=== PATIENT | female | born 2000 | race African-American/Black ===

== ENCOUNTER 2018-03-18 18:43 | Emergency (ER) | payer SELFPAY ==
[~2018-03-18] VITALS: Ht 167.6 cm; Wt 60.3 kg
[2018-03-18 18:54] VITALS: BP 107/58
[2018-03-18 19:49] LABS: Urine Amorphous Crystal FEW /hpf (None Seen); Urine Bacteria MANY /hpf (None Seen); Urine Blood Negative /uL (Negative); Urine Mucus FEW (None Seen); Urine Specific Gravity 1.017 (1.001-1.035); Urine WBC 2 /hpf (0 - 5)
== END 2018-03-18 20:58 | disposition left against medical advice (07) ==
LOC: ER 18:43
DX: O26.891 Other specified pregnancy related conditions, first trimester (principal); Z53.21 Procedure and treatment not carried out due to patient leaving prior to being seen by health care provider; Z3A.00 Weeks of gestation of pregnancy not specified
CPT/HCPCS: 36415; 81001; 84702

== ENCOUNTER 2018-03-20 04:37 | Emergency (ER) | payer SELFPAY ==
[~2018-03-20] VITALS: Ht 167.6 cm; Wt 60.3 kg
[2018-03-20 04:50] VITALS: BP 131/82
== END 2018-03-20 08:19 | disposition left against medical advice (07) ==
LOC: ER 04:41
DX: Z34.01 Encounter for supervision of normal first pregnancy, first trimester (principal); Z53.29 Procedure and treatment not carried out because of patient's decision for other reasons

== ENCOUNTER 2018-07-28 20:10 | Emergency (ER) | payer MEDICAID ==
[~2018-07-28] VITALS: Ht 167.6 cm; Wt 74.8 kg
[2018-07-28 20:20] VITALS: BP 109/56
[2018-07-28] MEDS ORDERED: IPRATROPIUM BROM 0.5 MG/2.5ML INH SOL HHN ONE (21:00)
[2018-07-28] MEDS ORDERED: ALBUTEROL SULF 2.5 MG/0.5ML(0.5%) NEB SOLN HHN ONE (21:00)
== END 2018-07-28 21:04 | disposition still patient (30) ==
LOC: ER 20:10 → EDBD 20:10 → ER 21:04
DX: O99.513 Diseases of the respiratory system complicating pregnancy, third trimester (principal); R06.02 Shortness of breath; Z53.21 Procedure and treatment not carried out due to patient leaving prior to being seen by health care provider; Z3A.00 Weeks of gestation of pregnancy not specified

== ENCOUNTER 2018-07-28 21:05 | Observation (INO) | payer MEDICAID ==
[~2018-07-28] VITALS: Ht 167.6 cm; Wt 72.6 kg
[2018-07-28] MEDS: TERBUTALINE SULFATE 1 MG/ML 1ML VIAL SC SCH ×2 (22:29→22:54)
== END 2018-07-28 23:45 | disposition home or self-care (01) | DRG 566 ==
LOC: LDRP 21:05
PROVIDERS: ADMIT Specialist; ATTEND Specialist
DX: O62.9 Abnormality of forces of labor, unspecified (principal); Z3A.32 32 weeks gestation of pregnancy
CPT/HCPCS: 59025; 81002; 96372; G0378; J3105

== ENCOUNTER 2018-08-01 13:30 | Observation (INO) | payer MEDICAID ==
[~2018-08-01] VITALS: Ht 167.6 cm; Wt 74.8 kg
[2018-08-01] MEDS ORDERED: BETAMETHASONE ACET (6MG/ML) 5ML VIAL ONE (15:25)
[2018-08-01] MEDS ORDERED: PREN-96 PO (17:26)
[2018-08-01] MEDS ORDERED: BETAMETHASONE ACET (6MG/ML) 5ML VIAL IM ONE (22:00)
[2018-08-02] MEDS ORDERED: NIF10C PO (16:43)
== END 2018-08-01 15:42 | disposition home or self-care (01) | DRG 563 ==
LOC: LDRP 13:30
PROVIDERS: ADMIT Specialist; ATTEND Specialist
DX: O60.03 Preterm labor without delivery, third trimester (principal); Z3A.32 32 weeks gestation of pregnancy
CPT/HCPCS: 59025; 81002; 96372; G0378; J0702

== ENCOUNTER 2018-08-02 14:26 | Observation (INO) | payer MEDICAID ==
[~2018-08-02] VITALS: Ht 167.6 cm; Wt 74.8 kg
[~2018-08-02 14:26] MED LIST: PREN-96 PO
[2018-08-02] MEDS ORDERED: BETAMETHASONE ACET (6MG/ML) 5ML VIAL IM ONE (14:45)
[2018-08-02] MEDS ORDERED: NIFEdipine 10 MG CAP PO ONE (15:00)
[2018-08-02] MEDS ORDERED: NIF10C PO (16:43)
== END 2018-08-02 16:40 | disposition home or self-care (01) | DRG 563 ==
LOC: LDRP 14:26
PROVIDERS: ADMIT Specialist; ATTEND Specialist
DX: O60.03 Preterm labor without delivery, third trimester (principal); Z3A.33 33 weeks gestation of pregnancy
CPT/HCPCS: 59025; 76815; 81002; 96372; G0378; J0702

== ENCOUNTER 2018-08-07 13:50 | Observation (INO) | payer MEDICAID ==
[~2018-08-07 13:50] MED LIST changes: +NIF10C PO
== END 2018-08-07 14:50 | disposition home or self-care (01) | DRG 563 ==
LOC: LDRP 13:50
PROVIDERS: ADMIT Specialist; ATTEND Specialist
DX: O60.03 Preterm labor without delivery, third trimester (principal); Z3A.33 33 weeks gestation of pregnancy
CPT/HCPCS: 59025; 81002; G0378

== ENCOUNTER 2018-08-14 14:55 | Observation (INO) | payer MEDICAID | END 2018-08-14 15:50 | disposition home or self-care (01) | DRG 563 | LOC: LDRP 14:55 | PROVIDERS: ADMIT Specialist; ATTEND Specialist | DX: O60.03 Preterm labor without delivery, third trimester (principal); Z3A.34 34 weeks gestation of pregnancy | CPT/HCPCS: 59025; 81002; G0378 ==

== ENCOUNTER 2018-08-26 08:10 | Observation (INO) | payer MEDICAID ==
[2018-08-26] MEDS ORDERED: LACTATED RINGER'S 1,000 ML IV ONE (08:34)
[2018-08-26] MEDS ORDERED: TERBUTALINE SULFATE 1 MG/ML 1ML VIAL SC ONE (08:45)
== END 2018-08-26 09:10 | disposition home or self-care (01) | DRG 563 ==
LOC: LDRP 08:10
PROVIDERS: ADMIT Specialist; ATTEND Specialist
DX: O60.03 Preterm labor without delivery, third trimester (principal); O26.893 Other specified pregnancy related conditions, third trimester; N89.8 Other specified noninflammatory disorders of vagina; Z3A.36 36 weeks gestation of pregnancy
CPT/HCPCS: 59025; 81002; G0378

== ENCOUNTER 2018-09-04 18:15 | Observation (INO) | payer MEDICAID | END 2018-09-04 20:45 | disposition home or self-care (01) | DRG 566 | LOC: LDRP 18:15 | PROVIDERS: ADMIT Obstetrics & Gynecology; ATTEND Obstetrics & Gynecology | DX: O26.893 Other specified pregnancy related conditions, third trimester (principal); N89.8 Other specified noninflammatory disorders of vagina; Z3A.37 37 weeks gestation of pregnancy | CPT/HCPCS: 59025; 76815; 81002; 87210; G0378 ==

== ENCOUNTER 2018-09-13 16:30 | Observation (INO) | payer MEDICAID | END 2018-09-13 19:35 | disposition home or self-care (01) | DRG 566 | LOC: LDRP 16:30 | PROVIDERS: ADMIT Obstetrics & Gynecology; ATTEND Obstetrics & Gynecology | DX: O42.913 Preterm premature rupture of membranes, unspecified as to length of time between rupture and onset of labor, third trimester (principal); Z3A.39 39 weeks gestation of pregnancy | CPT/HCPCS: 59025; 76805; 81002; G0378 ==

== ENCOUNTER 2018-09-20 03:12 | Observation (INO) | payer MEDICAID ==
[~2018-09-20] VITALS: Ht 167.6 cm; Wt 74.8 kg
[2018-09-20] MEDS ORDERED: LACTATED RINGER'S 1,000 ML IV SCH (03:50)
== END 2018-09-20 05:50 | disposition home or self-care (01) | DRG 566 ==
LOC: LDRP 03:12
PROVIDERS: ADMIT Obstetrics & Gynecology; ATTEND Obstetrics & Gynecology
DX: O46.93 Antepartum hemorrhage, unspecified, third trimester (principal); Z3A.40 40 weeks gestation of pregnancy
CPT/HCPCS: 59025; 76817; 76818; 81002; G0378

== ENCOUNTER 2018-09-20 18:30 | Observation (INO) | payer MEDICAID ==
[~2018-09-20] VITALS: Ht 167.6 cm; Wt 77.1 kg
[2018-09-20] MEDS ORDERED: NALBUPHINE HCL 10 MG/1ml INJECTION IV ONE (19:15)
[2018-09-20] MEDS ORDERED: LACTATED RINGER'S 1,000 ML IV ONE (19:15)
[2018-09-20] MEDS ORDERED: hydrOXYzine HCL 25 MG/ML VL IM ONE ×2 (19:30→19:31)
== END 2018-09-20 20:35 | disposition home or self-care (01) | DRG 566 ==
LOC: LDRP 18:30
PROVIDERS: ADMIT Obstetrics & Gynecology; ATTEND Obstetrics & Gynecology
DX: O48.0 Post-term pregnancy (principal); O21.2 Late vomiting of pregnancy; O62.9 Abnormality of forces of labor, unspecified; O46.93 Antepartum hemorrhage, unspecified, third trimester; Z3A.40 40 weeks gestation of pregnancy
CPT/HCPCS: 59025; 81002; 96372; G0378; J3410

== ENCOUNTER 2018-09-21 06:14 | Observation (INO) | payer MEDICAID ==
[~2018-09-21] VITALS: Ht 167.6 cm; Wt 77.1 kg
[2018-09-21] MEDS ORDERED: LACTATED RINGER'S 1,000 ML IV ONE (07:15)
[2018-09-21] MEDS ORDERED: NALBUPHINE HCL 10 MG/1ml INJECTION IV ONE (07:15)
== END 2018-09-21 09:10 | disposition home or self-care (01) | DRG 566 ==
LOC: LDRP 06:14 → UNDOADMOB 06:14 → UNDODISOB 09:10
PROVIDERS: ADMIT Obstetrics & Gynecology; ATTEND Obstetrics & Gynecology
DX: O62.9 Abnormality of forces of labor, unspecified (principal); O21.2 Late vomiting of pregnancy; O48.0 Post-term pregnancy; Z3A.40 40 weeks gestation of pregnancy
CPT/HCPCS: 59025; 76818; 81002; 96361; 96374; G0378; J2300; 96366

== ENCOUNTER 2018-09-21 17:50 | Inpatient (IN) | payer MEDICAID ==
[~2018-09-21] VITALS: Ht 167.6 cm; Wt 77.1 kg
[~2018-09-21 17:50] MED LIST changes: -NIF10C PO
[2018-09-21] MEDS ORDERED: LACT. RINGERS/OXYTOCIN 20UNITS 1,000 ML IV SCH (18:26)
[2018-09-21] MEDS ORDERED: PHISODERM TOP SOLN 240ML BTL TOP PRN (18:30)
[2018-09-21] MEDS ORDERED: METHYLERGONOVINE MALEATE 0.2 MG/ML AMP IM PRN (18:30)
[2018-09-21] MEDS ORDERED: WITCH HAZEL-GLYCERIN PAD TOP PRN (18:30)
[2018-09-21] MEDS ORDERED: LIDOCAINE 2%HCL (LOCAL ANESTH.) INJ 20ML MDV ID PRN (18:30)
[2018-09-21] MEDS ORDERED: PENICILLIN G POT 5MIL/D5 50ML 50 ML IV ONE (18:30)
[2018-09-21] MEDS ORDERED: DERMOPLAST 60ML BOTTLE TOP PRN (18:30)
[2018-09-21] MEDS: LACTATED RINGER'S 1,000 ML IV SCH ×3 (18:35→20:49)
[2018-09-21 19:13] LABS: INR 0.92 (0.9-1.15); Partial Thromboplastin Time 30.6 sec (23.78-33.04); Prothrombin Time 9.9 sec (9.27-12.13)
[2018-09-21] MEDS: PROMETHAZINE HCL 25 MG/ML 1ML IV PRN (19:15)
[2018-09-21] MEDS: NALBUPHINE HCL 10 MG/1ml INJECTION IV PRN (19:15)
[2018-09-21 19:16] LABS: Basophils # (auto) 0 uL; Basophils % (auto) 0.2 % (0.0-2.0); Eosinophils # (auto) 0 uL; Eosinophils % (auto) 0.1 % (0.0-7.0); Hemoglobin 11.3 g/dL (12.2-16.2); Lymphocytes # (auto) 1.1 uL; Lymphocytes % (auto) 9.6 % (10.0-50.0); Mean Corpuscular Hemoglobin 28.5 pg (28.0-32.0); Mean Corpuscular Hgb Conc. 33.2 g/dL (32.0-36.0); Mean Corpuscular Volume 85.6 fL (80.0-100.0); Monocytes # (auto) 1.1 uL; Monocytes % (auto) 9.7 % (0.0-12.0); Neutrophils # (auto) 8.8 uL; Neutrophils % (auto) 80.4 % (37.0-80.0); Platelet Count (auto) 247 10^3/uL (140-450); Red Blood Cells 3.97 10^6/uL (4.0-5.20); Red Cell Distribution Width 15.9 % (11.8-14.3); White Blood Cell 10.9 10^3/uL (4.4-10.8)
[2018-09-21 19:17] LABS: Albumin 2.3 g/dL (3.4-5.0); BUN/Creatinine Ratio 7.7; Calcium 8.7 mg/dL (8.5-10.1); Potassium 3.7 mmol/L (3.5-5.1)
[2018-09-21 19:17] LABS: Urine Bacteria NONE SEEN /hpf (None Seen); Urine Blood 2+ /uL (Negative); Urine Specific Gravity 1.007 (1.001-1.035); Urine WBC 114 /hpf (0 - 5); Urine WBC Clumps PRESENT /hpf (None Seen)
[2018-09-21 19:20] LABS: Bilirubin, Total 0.7 mg/dL (0.2-1.0); Total Protein 6.6 g/dL (6.4-8.2)
[2018-09-21 19:32] LABS: Alcohol, Urine < 3.0 mg/dL (0-5); Amphetamine Screen, Urine NEGATIVE (NEGATIVE); Barbiturate Scree,Urine NEGATIVE (NEGATIVE); Benzodiazephine Screen, Urine NEGATIVE (NEGATIVE); Cannabinoid Screen, Urine NEGATIVE (NEGATIVE); Cocaine Screen, Urine NEGATIVE (NEGATIVE); Opiate Scree,Urine NEGATIVE (NEGATIVE); Phencyclidine Screen, Urine NEGATIVE (NEGATIVE)
[2018-09-21] MEDS ORDERED: ePHEDrine SULFATE 50 MG/ML AMP IV ONE (20:00)
[2018-09-21] MEDS ORDERED: NALOXONE HCL 0.4 MG/ML VIAL IV ONE (20:00)
[2018-09-21] MEDS ORDERED: LACTATED RINGER'S 1,000 ML IV ONE (20:00)
[2018-09-21] MEDS: fentaNYL W ROPIVACAINE 150 ML EPI SCH (21:37)
[2018-09-21] MEDS: PENICILLIN G POTASSIUM 2,500,000 UNITS in D5W 5% 50 ML IV SCH (22:49)
[2018-09-22] MEDS: PENICILLIN G POTASSIUM 2,500,000 UNITS in D5W 5% 50 ML IV SCH ×4 (02:29→14:30)
[2018-09-22] MEDS ORDERED: TERBUTALINE SULFATE 1 MG/ML 1ML VIAL SC ONE (02:30)
[2018-09-22] MEDS: LACTATED RINGER'S 1,000 ML IV SCH ×2 (04:49→10:10)
[2018-09-22] MEDS: fentaNYL W ROPIVACAINE 150 ML EPI SCH (08:00)
[2018-09-22] MEDS: NALBUPHINE HCL 10 MG/1ml INJECTION IV PRN (08:38)
[2018-09-22] MEDS: PROMETHAZINE HCL 25 MG/ML 1ML IV PRN (08:39)
[2018-09-22] MEDS ORDERED: fentaNYL CITRATE 100 MCG/2 ML VL ONE (09:29)
[2018-09-22] MEDS ORDERED: LIDOCAINE HCL 2 %PF INJ 10ML AMP IJ ONE (09:30)
[2018-09-22] MEDS ORDERED: IBUPROFEN 600 MG TAB PO ONE (16:07)
--- NOTE | 2018-09-22 17:45 | NUR ---
Ambulation: Patient OOB with standby assistance by RN. Patient ambulated to bathroom with steady gait. Patient able to void 800 cc without difficulty. [facility]ic[facility] teaching provided with returned demonstration by patient. Clean gown provided and bed linen changed. Patient ambulated back to bed with steady gait and no distress noted.
[2018-09-22] MEDS ORDERED: IBUPROFEN 600 MG TAB PO PRN (18:15)
[2018-09-22 18:30] VITALS: BP 132/82
[2018-09-22] MEDS ORDERED: ACETAMINOPHEN 325 MG TAB PO PRN (18:45)
[2018-09-22] MEDS ORDERED: ACETAMINOPHEN 325 MG TAB PO ONE (18:48)
[2018-09-22] MEDS ORDERED: ceFAZolin 1GM/50ML 50 ML IV SCH (22:00)
[2018-09-22 23:00] VITALS: BP 118/67
[2018-09-22] MEDS: IBUPROFEN 600 MG TAB PO PRN (23:17)
[2018-09-23] MEDS ORDERED: ceFAZolin 1GM/50ML 50 ML IV SCH
[2018-09-23 03:00] VITALS: BP 105/60
[2018-09-23 06:06] LABS: RPR Non Reactive (Non Reactive)
[2018-09-23 07:05] VITALS: BP 107/65
--- NOTE | 2018-09-23 07:58 | NUR ---
IV PT STATES "MY IV IS HURTING ME." FLUSHED PTS IV, RESISTANCE MET, INFILTRATION NOTED AT INSERTION SITE. PT STATES IT HURTS. WILL NOTIFY DR. VINSON, HOLDING IV ANCEF AT THIS TIME.
[2018-09-23] MEDS: IBUPROFEN 600 MG TAB PO PRN (07:59)
--- NOTE | 2018-09-23 08:00 | NUR ---
IV ANTIBIOTIC DR. VINSON AT NURSES STATION. DR. VINSON NOTIFIED THAT PT HAS IV ANCEF SCHEDULED PER DR. MCGINNIS FOR PT TEMPERATURE OF 99.5 DURING LABOR PER LUMBER INSPECTOR RN REPORT. DR. VINSON NOTIFIED OF PTS TRENDING VITAL SIGNS AND TEMPERATURES, PT HAS BEEN AFEBRILE ON LUMBER INSPECTOR AND MORNING TEMPERATURE WAS 97.9. DR. VINSON NOTIFIED THAT PTS IV IS INFILTRATED AND PT STATES HER IV HURTS. ORDERS RECEIVED FROM DR. VINSON TO DISCONTINUE IV ANCEF ANTIBIOTIC AND DISCONTINUE PTS IV. READ BACK AND VERIFIED ORDERS. WILL CARRY OUT.
--- NOTE | 2018-09-23 08:15 | NUR ---
IV removal IV DC'd with sterile technique, catheter fully intact. Pressure dressing applied to site. Patient tolerated procedure well.
[2018-09-23] MEDS ORDERED: DOCUSATE CALCIUM 240 MG CAP PO SCH (10:00)
[2018-09-23] MEDS: LACTATED RINGER'S 1,000 ML IV SCH (10:26)
[2018-09-23 11:30] VITALS: BP 108/53
--- NOTE | 2018-09-23 13:10 | NUR ---
Discharge: Discharge instructions given as ordered. Pt encouraged to follow up with [facility] as instructed. All questions and concerns addressed. Patient verbalized understanding. Medication reconciliation completed and copy given to patient. Patient encouraged to prepare to depart unit.
[2018-09-23 15:23] VITALS: BP 119/83
--- NOTE | 2018-09-23 16:00 | NUR ---
Discharge: Patient taken to vehicle via ambulatory per pt request with all personal belongings, accompanied by antonio Hurley V and family member. No distress noted at time of departure, no adverse changes in status since initial assessment.
== END 2018-09-23 16:00 | disposition home or self-care (01) | DRG 560 ==
LOC: LDRP 17:50 → OBSVTOIN 18:24
PROVIDERS: ADMIT Obstetrics & Gynecology; ATTEND Obstetrics & Gynecology
PROC: 10D07Z6 Extraction of Products of Conception, Vacuum, Via Natural or Artificial Opening (ICD-10-PCS; principal; 2018-09-22)
PROC: 0W8NXZZ Division of Female Perineum, External Approach (ICD-10-PCS; 2018-09-22)
PROC: 0KQM0ZZ Repair Perineum Muscle, Open Approach (ICD-10-PCS; 2018-09-22)
PROC: 3E0R3BZ Introduction of Anesthetic Agent into Spinal Canal, Percutaneous Approach (ICD-10-PCS; 2018-09-22)
PROC: 00HU33Z Insertion of Infusion Device into Spinal Canal, Percutaneous Approach (ICD-10-PCS; 2018-09-22)
DX: O70.1 Second degree perineal laceration during delivery (principal); Z37.0 Single live birth; Z3A.40 40 weeks gestation of pregnancy
CPT/HCPCS: 36415; 51702; 59025; 59409; 62282; 80053; 80307; 81001; 85025; 85610; 85730; 86592; 86850; 86900; 86901; 96361; 96365; 96366; 96374; 96375; A6257; G0378; J0690; J2540; J2590; J3010; J7060